=== PATIENT | female | born 1975 | race Caucasian/White ===

== ENCOUNTER → 2023-09-06 08:00 | Outpatient (BNV) | payer OTHER, SELFPAY | PROVIDERS: Visit Provider Psychiatry & Neurology Psychiatry | DX: F14.20 Cocaine dependence, uncomplicated (principal); F11.20 Opioid dependence, uncomplicated; F39 Unspecified mood [affective] disorder; F90.9 Attention-deficit hyperactivity disorder, unspecified type; F17.210 Nicotine dependence, cigarettes, uncomplicated; F41.8 Other specified anxiety disorders; F10.21 Alcohol dependence, in remission | CPT/HCPCS: 90837; 99213 ==

== ENCOUNTER 2023-09-12 08:45 | Outpatient (RCR) | payer OTHER, SELFPAY ==
[2023-08-26 13:10] VITALS: BMI 31.7
[2023-08-26 13:11] VITALS: BP 108/62; PULSE 48; TEMP 36.1
--- NOTE | 2023-08-26 14:03 | PC.ADMIT ---
Patient is a 47 year old female who was referred to [facility] by [facility], a residential program for women struggling with substance use. Patient reports history of using Crack Cocaine and Heroin IV daily. Since living at the residential program for about a year patient reports she has relapsed 5-6 times on Crack cocaine and Heroin, last use of both substances was on 07/21/23. She reports attending meetings at the residence attending 5 NA and AA meetings via zoom a week. She is on MAT with Methadone. Denied any current withdrawal sxs. Patient also reports history of depression and not wanting to get out of bed, PTSD, and anxiety. She is currently unemployed and one of her goals is to return to work. Patient is alert and oriented x4. Calm and cooperative. Denied SI, HI. Patient given a copy of her safety/relapse plan. Awaiting confirmation of Methadone dose from Jenny Hogan. Patient reports she is not taking any other prescribed medications.
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
--- NOTE | 2023-08-27 09:00 | HO.PHP ---
Liborio connected with [facility] staff member Maria Isabel Urias and noted that she would be unable to attend the program due to transportation concerns this morning. She verbally contracted for safety over the phone and stated that she would return to the program tomorrow.
[2023-08-28 11:02] LABS: Amphetamine Screen Urine Not Detected (Not Detect); Barbiturates, Urine Not Detected (Not Detect); Benzodiazepines Screen Urine Not Detected (Not Detect); Cannabinoid Screen Urine Not Detected (Not Detect); Cocaine Screen Urine POSITIVE (Not Detect); Fentanyl, urine POSITIVE (Not Detect); Opiate Screen Urine POSITIVE (Not Detect); Phencyclidine Screen Urine Not Detected (Not Detect)
--- NOTE | 2023-08-29 15:39 | PHP/IOPCOSI ---
Liborio's treatment plan was reviewed by the [facility] clinical staff. Their case has been opened and reviewed.
[2023-08-30 10:49] VITALS: BP 90/60; PULSE 50
--- NOTE | 2023-08-30 11:10 | P.PNPSP_ITS ---
Subjective Subjective Date of Service: 08/30/23 Reason For Visit: PTSD,ASHLEE Interim History: Patient see for follow-up today. She reports recent trip up relapse last , says she stopped herself straight away. She says she did not contiuing using and denies any further use since . She admits she has had a few close calls noting that one of the other residents keeps uses around her and often inviting her to use even though she knows I'm in the program and trying to stay clean . She admits cravings have been more problematic, especially around this time of the month (2nd week) because people get their SSI money and historically is a time people mixing picker tender using more because they have available rojas. Patient says she is open to starting on medication changes, as we had previously discussed, to help with cravings and help with cognitive issues - attention/focus, distractibility, executive dysfunction, as well as low energy. Patient runs hypotensive today 90/60 with pulse 50 on guanfacine ER 1 mg. (She was previously with HR 47 and BP 108/62 priro to starting guanfacine. There was no appreciable difference and patient deneis any adverse effects. I discuss whether we should discontinue however patient says she is not symptomatic and has found the guanfacine to be very helpful for her anxiety and would like to continue on the medication. She had asked about increasing the dose, but for now I suggest she remain at 1 mg. Perhaps with starting on Wellbutrin (which can raise BP) perhaps increasing the guanfacine may be more approrpaite at that time. Medication Compliance: Yes Side effects from medications: No Attending Groups: Yes Review of Systems Acute medical concerns: No Mental Status Exam Mental Status Exam Narrative: Alert, oriented, in no acute distress. Calm, cooperative, engaged. No psychomotor agitation or neurovegetative retardation. Eye contact maintained. Mood anxious, affect variable, mood congruent. Speech normal. Thought process linear, coherent. Thought content related to stressors, cravings, poor attention, executive dysfunction, denies any helplessness, hopelessness or SI.? No aggressive ideation or HI. No paranoia or delusional content elicited. No evidence of psychosis. Insight and judgment fair but adequate. Diagnostics Vital Signs (24Hr): Vital Signs - 24 hr 08/30/23 10:49 Pulse Rate 50 Blood Pressure 90/60 BMI result Body Mass Index 31.7 Assessment & Plan Assessment & Plan (1) Cocaine use disorder, severe, dependence: Status: Acute Code(s): F14.20 - Cocaine dependence, uncomplicated (2) Opioid use disorder, severe, on maintenance therapy, dependence: Status: Acute Code(s): F11.20 - Opioid dependence, uncomplicated (3) Nicotine dependence: Qualifiers: Nicotine product type: cigarettes Substance use status: uncomplicated Qualified Code(s): F17.210 - Nicotine dependence, cigarettes, uncomplicated Status: Acute Code(s): F17.200 - Nicotine dependence, unspecified, uncomplicated (4) Other specified anxiety disorders: Status: Acute Code(s): F41.8 - Other specified anxiety disorders (5) Attention and concentration deficit: Status: Acute Code(s): R41.840 - Attention and concentration deficit (6) Mood disorder: Status: Acute Code(s): F39 - Unspecified mood [affective] disorder (7) Alcohol use disorder, severe, in sustained remission: Status: Acute Code(s): F10.21 - Alcohol dependence, in remission Plan will hold guanfacine, just as starting on topiramate, then if tolerated, will continue guanfacine start buproprion SR 50 mg x 2 days then increase to 100 mg qam start topiramate 25 mg qhs reviewed VS today: BP 90/60 and HR 50 bpm. Patient denies any symptoms, she says she generally runs low and that this is her baseline BP and pulse continue to monitor, nontheless we will Patient educated on: diagnosis, medication risk/benefits and substance abuse Informed Consent: understands Reason for contiued partial hosp. stay Substantial Risk for: inability to function, rapid decompensation and med/psych decompensation Certification I certify that partial hospital treatment is medically necessary due to the symptoms and problems resulting from the patient's mental illness and the failure to treat the patient at the partial hospital level of care would likely result in the patient requiring inpatient psychiatric care which could not be prevented at a less intensive level of care. Total time managing care of this patient today __30__ minutes. Discharge Plan Discharge Attending provider: Joanna Cleaning Medications: New bupropion HCl [Wellbutrin SR] 150 mg tablet sustained-release 12 hr 150 mg PO QAM Qty: 30 0RF Continued methadone 10 mg/5 mL Solution 80 mg PO DAILY topiramate 25 mg tablet 25 mg PO BID Qty: 30 0RF Changed guanfacine 1 mg tablet extended release 24 hr 1 - 2 mg PO DAILY Qty: 30 0RF Stand Alone Forms: Patient Portal Discharge page
--- NOTE | 2023-09-06 23:45 | HO.PHPPROGNO ---
Subjective Subjective Date of Service: 09/06/23 Reason For Visit: PTSD,ASHLEE Interim History: Feeling great...I feel so much better . She notices some improvements in attention sicne starting on the Wellbutrin SR which was increased to 100 mg. She denies any adverse effects, she notes a modest lift in energy and mood. She is also feeling more motivated and is hopeful she will be able to continue on path to receovery. She has started on topiramate, feels she could benefit from increasing the dose which is reasonable. She is also open to seeing if there are any further benefits in upping dose of WB to 150. Denies any SI. Cravings better but situationally there, mostly due to living situation. Medication Compliance: Yes Side effects from medications: No Attending Groups: Yes Review of Systems Acute medical concerns: No Mental Status Exam Mental Status Exam Narrative: Alert, oriented, in no acute distress. Calm, cooperative, engaged, well-related. No psychomotor agitation or neurovegetative retardation. Eye contact maintained. Mood anxious, affect variable, mood congruent. Speech normal. Thought process linear, coherent. Thought content related to stressors, denies any helplessness, hopelessness or SI.? No aggressive ideation or HI. No paranoia or delusional content elicited. No evidence of psychosis. Sensorium clear, distractible at times, but self-redirects. Cognition grossly intact. Insight intact and judgment fair but adequate. Diagnostics Vital Signs (24Hr): BMI result Body Mass Index 31.7 Assessment & Plan Assessment & Plan (1) Cocaine use disorder, severe, dependence: Status: Acute Code(s): F14.20 - Cocaine dependence, uncomplicated (2) Opioid use disorder, severe, on maintenance therapy, dependence: Status: Acute Code(s): F11.20 - Opioid dependence, uncomplicated (3) Mood disorder: Status: Acute Code(s): F39 - Unspecified mood [affective] disorder (4) Attention-deficit hyperactivity disorder, unspecified type: Status: Acute Code(s): F90.9 - Attention-deficit hyperactivity disorder, unspecified type Assessment and Plan: no previous dx, but ADD strongly suggested as per clinical presentation and developmental hx (5) Nicotine dependence: Qualifiers: Nicotine product type: cigarettes Substance use status: uncomplicated Qualified Code(s): F17.210 - Nicotine dependence, cigarettes, uncomplicated Status: Acute Code(s): F17.200 - Nicotine dependence, unspecified, uncomplicated (6) Other specified anxiety disorders: Status: Acute Code(s): F41.8 - Other specified anxiety disorders (7) Alcohol use disorder, severe, in sustained remission: Status: Acute Code(s): F10.21 - Alcohol dependence, in remission Plan increase Wellbutrin SR to 150 mg qAM increase guanfacine to 1-2 mg qd increase topiramate to 25 mg BID continue to monitor Patient educated on: diagnosis, medication risk/benefits and substance abuse Informed Consent: understands Reason for contiued partial hosp. stay Substantial Risk for: inability to function, rapid decompensation and med/psych decompensation Certification I certify that partial hospital treatment is medically necessary due to the symptoms and problems resulting from the patient's mental illness and the failure to treat the patient at the partial hospital level of care would likely result in the patient requiring inpatient psychiatric care which could not be prevented at a less intensive level of care. Total time managing care of this patient today __30__ minutes. Discharge Plan Discharge Attending provider: Joanna Cleaning Medications: New bupropion HCl [Wellbutrin SR] 150 mg tablet sustained-release 12 hr 150 mg PO QAM Qty: 30 0RF Continued methadone 10 mg/5 mL Solution 80 mg PO DAILY topiramate 25 mg tablet 25 mg PO BID Qty: 30 0RF Changed guanfacine 1 mg tablet extended release 24 hr 1 - 2 mg PO DAILY Qty: 30 0RF Stand Alone Forms: Patient Portal Discharge page
--- NOTE | 2023-09-10 20:18 | P.PNPSP_ITS ---
Subjective Subjective Date of Service: 09/10/23 Reason For Visit: PTSD,ASHLEE Interim History: Patient seen for follow-up, anticipating discharge at the end of program today.? She reports mood is better, a lot better, I dont feel depressed anymore . She reports focus is so much better with WB SR at 150 mg qAM. Anxiety is also good . SHe has been taking between 2 mg of guanfacine ER in the AM with Wellbutrin, denies any AE. VS today is 89/61 and HR 47. She says this is normal for her and denies any dizziness or palpitations and in fact feels the 2 mg of guanfacine helps more with anxiety than 1 mg. Will plan to continue at 2 mg but will order 1 mg to have flexibility to decrease dose if needed. Topiramate BID and she feels it has helped with cravings, which persist and not bothersome, she feels her living situation is what puts her most at risk and would like to start making plans/steps to find better housing. Reports no acute issues or concerns. Medication compliant, medications well- tolerated. Denies any adverse effects.? Today, mood is stable.? Denies any hopelessness or SI. Denies thoughts of harming self or others at this time. Denies any aggressive ideation or HI. Denies any paranoia or AH or VH. Sleep, appetite, energy stable. Mental Status Exam Mental Status Exam Narrative: Alert, oriented, in no acute distress. Calm, cooperative, engaged, well-related. No psychomotor agitation or neurovegetative retardation. Eye contact maintained. Mood euthymic, affect variable, brighter, mood congruent. Speech normal. Thought process linear, coherent. Thought content related to stressors, denies any helplessness, hopelessness or SI.? No aggressive ideation or HI. No paranoia or delusional content elicited. No evidence of psychosis. Sensorium clear. Cognition grossly intact. Insight intact and judgment intact. Diagnostics Vital Signs (24Hr): BMI result Body Mass Index 31.7 Assessment & Plan Assessment & Plan (1) Major depressive disorder: Status: Acute Code(s): F32.9 - Major depressive disorder, single episode, unspecified (2) Attention-deficit hyperactivity disorder, unspecified type: Status: Acute Code(s): F90.9 - Attention-deficit hyperactivity disorder, unspecified type (3) Other specified anxiety disorders: Status: Acute Code(s): F41.8 - Other specified anxiety disorders (4) Cocaine use disorder, severe, dependence: Status: Acute Code(s): F14.20 - Cocaine dependence, uncomplicated (5) Nicotine dependence: Qualifiers: Nicotine product type: cigarettes Substance use status: uncomplicated Qualified Code(s): F17.210 - Nicotine dependence, cigarettes, uncomplicated Status: Acute Code(s): F17.200 - Nicotine dependence, unspecified, uncomplicated (6) Opioid use disorder, severe, on maintenance therapy, dependence: Status: Acute Code(s): F11.20 - Opioid dependence, uncomplicated Plan [facility]charge from [facility] Wellbutrin SR 150 mg qAM Intuniv 1-2 mg qAM Topemax 25 mg BID continue regular medications: methadone will defer further medication management to outpatient provider Refills sent to pharmacy Patient educated on: diagnosis, medication risk/benefits and substance abuse Informed Consent: understands Reason for contiued partial hosp. stay Substantial Risk for: stable for discharge Certification I certify that partial hospital treatment is medically necessary due to the symptoms and problems resulting from the patient's mental illness and the failure to treat the patient at the partial hospital level of care would likely result in the patient requiring inpatient psychiatric care which could not be prevented at a less intensive level of care. Total time managing care of this patient today _30___ minutes. Discharge Plan Discharge Attending provider: Joanna Cleaning Medications: New bupropion HCl [Wellbutrin SR] 150 mg tablet sustained-release 12 hr 150 mg PO QAM Qty: 30 0RF Continued methadone 10 mg/5 mL Solution 80 mg PO DAILY topiramate 25 mg tablet 25 mg PO BID Qty: 30 0RF Changed guanfacine 1 mg tablet extended release 24 hr 1 - 2 mg PO DAILY Qty: 30 0RF Stand Alone Forms: Patient Portal Discharge page
--- NOTE | 2023-09-11 08:45 | HO.PHP ---
Liborio called the [facility] program and stated that she has woken late and missed the bus to the program. She stated that she would be unable to attend the program day due to concerns regarding transportation. She verbally contracted for safety and stated that she would be returning to the program for her last day tomorrow.
== END 2023-09-12 23:59 | disposition home or self-care (01) ==
LOC: HO.PHPA 08:45
PROVIDERS: Visit Provider Psychiatry & Neurology Psychiatry
DX: F39 Unspecified mood [affective] disorder (principal); F41.8 Other specified anxiety disorders; R41.840 Attention and concentration deficit; F32.9 Major depressive disorder, single episode, unspecified; F90.9 Attention-deficit hyperactivity disorder, unspecified type; F14.20 Cocaine dependence, uncomplicated; F11.20 Opioid dependence, uncomplicated; F17.210 Nicotine dependence, cigarettes, uncomplicated; F10.21 Alcohol dependence, in remission; Z79.899 Other long term (current) drug therapy
CPT/HCPCS: 80307; 90791; 90853